=== PATIENT | female | born 1970 | race Hispanic/Latino ===

== ENCOUNTER 2021-08-22 07:50 | Observation (INO) | payer MEDICARE ==
--- NOTE | 2021-08-17 15:33 | Anesthesia Consultation ---
Anesthesia Consult and Med Hx Date of service: 08/22/21 - Airway Anesthetic Teeth Evaluation: Dentures ROM Head & Neck: Adequate (Has had cervical steroid injections) Mental/Hyoid Distance: Adequate Mallampati Class: Class III Intubation Access Assessment: Probably Good - Pre-Operative Health Status ASA Pre-Surgery Classification: ASA3 Proposed Anesthetic Plan: Spinal (GA if needed) - Pulmonary Hx Smoking: Yes (STOPPED X 4 WEEKS) COPD: Yes (INHALER PRN) Hx Sleep Apnea: No (NANCY PRE SCREEN HIGH RISK) - Cardiovascular System Hx Hypertension: Yes (X 5 YRS) - Central Nervous System Hx Back Pain: Yes (NECK AND BACK PAIN) Hx Psychiatric Problems: Yes (Fibromyalgia/Anxiety/Depression/Bipolar) - Gastrointestinal Hx Gastroesophageal Reflux Disease: No - Endocrine Hx Thyroid Disease: Yes Hx Hypothyroidism: Yes (S/P THYROIDECTOMY , DAILY MEDS) - Hematic Hx Anemia: Yes - Other Systems Hx Cancer: No
[~2021-08-22 07:50] MED LIST: ACETAMINOPHEN 500 MG TAB PO SCH; CELECOXIB 200 MG CAP PO NR; GABAPENTIN 300 MG CAP PO NR; LACTATED RINGERS 1,000 ML IV SCH; MAGNESIUM OXIDE 400 MG TAB PO SCH; MIDAZOLAM 2 MG/2 ML INJ IV NR; PREGABALIN 25 MG CAP PO SCH; fentaNYL 100 MCG/2 ML INJ IV SCH
[2021-08-22] MEDS ORDERED: ONDANSETRON 4 MG/2 ML INJ IV PRN ×2 (08:54→19:17)
[2021-08-22] MEDS ORDERED: oxyCODONE /ACETAMINOPHEN 5-325MG TAB PO PRN (08:54)
[2021-08-22] MEDS ORDERED: HYDROmorphone 1 MG/1 ML INJ IV PRN (08:54)
--- NOTE | 2021-08-22 08:56 | Anesthesia Day of Surgery ---
Anesthesia Day of Surgery - Day of Surgery Patient Examined: Yes Patient H&P Reviewed: Yes Patient is NPO: Yes Pulmonary Clearance: Yes
[2021-08-22] MEDS ORDERED: BUPIVACAINE/PF (0.25%) 2.5 MG/ML 30 ML VIAL INFILTRATI ONE (09:09)
[2021-08-22] MEDS ORDERED: dexAMETHasone 4 MG/ML VIAL ONE (09:09)
[2021-08-22] MEDS ORDERED: methOCARBAMOL 1,000 MG in SODIUM CHLORIDE 0.9% 250ML 250 ML IV SCH (09:30)
[2021-08-22] MEDS ORDERED: PREGABALIN 50 MG CAP PO SCH (10:00)
[2021-08-22] MEDS ORDERED: CELECOXIB 200 MG CAP PO SCH (10:00)
[2021-08-22] MEDS ORDERED: ceFAZolin/Water 2 GM/20 ML 2 GM/20 ML SYRINGE IV ONE (11:02)
[2021-08-22] MEDS ORDERED: LIDOCAINE MPF (2%) 20 MG/1 ML VIAL 5 ML ONE (11:30)
[2021-08-22] MEDS ORDERED: fentaNYL 100 MCG/2 ML INJ ONE (11:30)
[2021-08-22] MEDS ORDERED: propofoL 200 MG/20 ML VIAL IV ONE (11:30)
[2021-08-22] MEDS ORDERED: KETAMINE/STERILE WATER 50 MG/ML SYRINGE ONE (11:31)
[2021-08-22] MEDS ORDERED: ceFAZolin/STERILE WATER 2 GM/20 ML SYRINGE IV NR (12:00)
[2021-08-22] MEDS ORDERED: MORPHINE 10 MG/1 ML INJ ONE (12:06)
[2021-08-22] MEDS ORDERED: methylPREDNISolone ACETATE 40 MG/1 ML INJ ONE (12:06)
[2021-08-22] MEDS ORDERED: BUPIVACAINE/PF (0.5%) 5 MG/1 ML 30 ML VIAL INFILTRATI ONE ×2 (12:07→13:16)
[2021-08-22] MEDS ORDERED: SODIUM CHLORIDE P/F VIAL 10 ML 30 ML ONE (12:08)
[2021-08-22] MEDS ORDERED: SUCCINYLCHOLINE CHLORIDE 200 MG/10 ML INJ MDV ONE (12:19)
[2021-08-22] MEDS ORDERED: ALBUTEROL 8.5 GM MDI INHALATION IH ONE (12:19)
[2021-08-22] MEDS ORDERED: TRANEXAMIC ACID 1,000 MG/10 ML ONE (12:23)
[2021-08-22] MEDS ORDERED: MORPHINE 10 MG/1 ML INJ IM ONE (13:12)
[2021-08-22] MEDS ORDERED: methylPREDNISolone ACETATE 40 MG/1 ML INJ INTRA-ARTI ONE (13:14)
[2021-08-22] MEDS ORDERED: SODIUM CHLORIDE 0.9% 50 ML VIAL IRRIGATION ONE ×2 (13:15)
[2021-08-22] MEDS ORDERED: SODIUM CHLORIDE 0.9% IRRIG SOLN 2000 ML IR ONE (13:29)
[2021-08-22] MEDS ORDERED: TRANEXAMIC ACID 1,000 MG/10 ML IV ONE (14:18)
--- NOTE | 2021-08-22 16:02 | Post Operative Note ---
Pre-op diagnosis: right knee osteoarthritis Post-op diagnosis: same Findings: severe right knee osteoarthritis Procedure: right total knee replacement Anesthesia: GETA Surgeon: KATLIN KIMBLE Estimated blood loss: other (150cc) Specimen disposition: discarded Condition: stable Disposition: PACU
--- NOTE | 2021-08-22 16:04 | Discharge Summary ---
Short Stay Discharge Plan Activity: no restrictions, advance as tolerated, no driving until cleared by PCP Weight Bearing Status: Full Weight Bearing Diet: regular Wound: keep clean and dry, per your surgeon's advice Special Instructions: physical therapy Durable Medical Equipment Needed Upon Discharge: Walker-Rolling, Bedside Commode Follow up with: KATLIN KIMBLE DO [Staff Physician] - 10 Days FELIPA FERNANDO MD [Primary Care Provider] - 14 Days
--- NOTE | 2021-08-22 17:22 | Operative Report ---
Operative Report Operative Report: Patient Name: Yenifer Vang Date of : 1970 Date of Surgery: 08/22/21 Pre-Operative Diagnosis: Right knee Osteoarthritis Post-Operative Diagnosis: right knee osteoarthritis Procedure: Right total knee arthroplasty Surgeon: Dung Stone DO Assistants: None EBL: 150cc Complications: None Anesthesia: GETA, plus regional nerve block for post-operative pain control Implants: Medacta GMK Sphere size 3+ femur, size 3 tibia, 10mm CS polyethylene insert, size 2 patella Tourniquet Time: 60 minutes Indications: This is a 51-year-old female who presented with worsening right knee pain over the last 4 to 5 years. Pain is worse with weightbearing. Patient difficulty ambulating, going up and down the stairs because of the pain. Patient had tried nonoperative management including physical therapy, joint injections, anti-inflammatory medications, knee braces, activity modifications, ambulating with assistive devices. Despite all this patient continues to have severe pain in her right knee. Patient was up in the preoperative holding area the risk, benefits, alternatives to surgery were explained to the patient in detail. Risks include but not limited to infection, bleeding, neurovascular injury, infection, need for further surgery, fracture, dislocation, pain, stiffness, loss of limb, loss of life. Informed consent was obtained after all questions were thoroughly answered. Procedure: Patient was placed supine on the operating room table and all bony prominences were well-padded. The right lower extremities prepped and draped in the usual sterile fashion. A timeout was performed by all members of the operating room team. An Esmarch bandage was used to wrap the right lower extremity and the tourniquet was inflated to 250 mmHg. A midline incision was made over the right knee. Sharp dissection was used to go through the skin and the subcutaneous fat. Medial and lateral fasciocutaneous flaps were then elevated. Using electrocautery a medial parapatellar arthrotomy was then performed. Upon inspection of the knee joint there was severe osteoarthritis in the medial, lateral and patellofemoral compartments. The ACL and the PCL as well as the meniscal remnants were then removed. A custom cutting guide had been made for the patient preoperatively based on CT scans. It was then fixed to the distal femur using 3 pins. Using an oscillating saw the distal femoral resection was then performed. The custom cutting guide was then removed and a size 3+ 4-in-1 cutting block was then secured to the distal femur using 2 bone screws. Again using the oscillating saw the anterior and posterior distal femoral cuts were made along with the anterior and posterior chamfer cuts. Next our attention was then turned to the proximal tibia. The custom proximal tibial cutting jig was then secured to the proximal tibia using 3 pins. An oscillating saw was used to make our proximal tibial resection. Next using a laminar metal polisher the knee joint was opened up in 90 degrees of flexion. Using a 0.5 inch curved osteotome the posterior osteophytes were removed from both the posterior medial distal femur as well as posterior lateral distal femur. The meniscal remnants were then removed. Next the tibia was anteriorly subluxed and a size 3 tibial guide was then placed in the appropriate amount of rotation parallel to the rotational axis of the tibia of the council knee. Tibial guide was secured to the proximal tibia using 2 pins. The tibia was then drilled and punched in the proper rotation. Trial components were then placed on the tibia as well as the femur. The knee was taken through the full range of motion and found to be stable. The knee was able to be flexed to 135 degrees and extension to 0 degrees. There is no varus or valgus laxity with the knee in full extension. The knee was flexed to 90 degrees and again varus and valgus stress was applied. There was no gapping of the medial side with the knee 90 degrees of flexion, the lateral side had approximately 2 mm of gapping which was consistent with a kinematics of the council knee joint. The patella was also tracking well within the trochlear groove with no lateral tilt or subluxation. The patella was then everted and cut down to 14 mm using the patellar cutting guide. 3 holes were drilled into the patella and the trial button was placed. Again the knee was taken through the full range of motion with good patella tracking. At this point we were satisfied with the overall range of motion the stability of the patella tracking as well as the knee. All trials were then removed. The real components were opened. The knee was copiously irrigated with antibiotic saline and then dried. A local anesthetic cocktail was then injected into the posterior capsule as well as the surrounding deep tissues of the knee joint. 2 bags of cement were mixed. Once the cement was in a doughy state the real components were cemented into place starting with the tibia followed by the femur and then the patella. All excess cement was then removed using curettes from around the implants. Once the cement had completely hardened the knee was irrigated again with diluted Betadine mixed with normal saline. The knee was then copiously irrigated with normal saline using pulsatile lavage. The tourniquet was let down earlier at 60 minutes. Electrocautery was used throughout the case to maintain meticulous hemostasis. The arthrotomy was then closed in flexion in a watertight fashion using #1 Ethibond suture in an interrupted fashion. The deep fascial layer was closed with 0 Vicryl. The subcutaneous layers were closed with 2-0 Vicryl and the skin was closed with 3-0 Monocryl. The wound was then covered with an occlusive dressing. The right lower extremity was wrapped in an Jai wrap from the foot all the way up to the proximal thigh. The sponge and needle count were correct in the case. The patient was then awakened by the anesthesia team and taken to the recovery room in stable condition. The patient's right total knee arthroplasty was performed using the caliper k inematically aligned technique with patient specific custom cutting guides.
[2021-08-22] MEDS ORDERED: MORPHINE 4 MG/1 ML INJ IV PRN (19:17)
[2021-08-22] MEDS ORDERED: traMADol 50 MG TAB PO PRN (19:17)
[2021-08-22] MEDS ORDERED: oxyCODONE 5 MG TAB PO PRN (19:17)
[2021-08-22] MEDS ORDERED: SODIUM CHLORIDE 0.9% 1000 ML 1,000 ML IV SCH (19:17)
--- NOTE | 2021-08-22 20:12 | Post Anesthesia Evaluation ---
- Post Anesthesia Evaluation Patient Participated: Yes Airway Patent: Yes Stable Respiratory Function: Yes Nausea/Vomiting: No Temp > 96.8F: Yes Pain Manageable: Yes Adequeate Hydration: Yes Anesthesia Complications: No
[2021-08-22] MEDS: KETOROLAC 30 MG/1 ML INJ IV SCH (20:36)
[2021-08-22] MEDS: ASPIRIN 81 MG TAB CHEW PO SCH (23:33)
[2021-08-22] MEDS: DOCUSATE SODIUM 100 MG CAP PO SCH (23:34)
[2021-08-22] MEDS: ACETAMINOPHEN 325 MG TAB PO SCH (23:51)
[2021-08-23] MEDS: ceFAZolin/NS 1 GM/50 ML 1 GM/50 ML BAG IV SCH ×2 (00:12→06:27)
[2021-08-23] MEDS: ACETAMINOPHEN 325 MG TAB PO SCH ×3 (01:05→19:06)
[2021-08-23] MEDS: KETOROLAC 30 MG/1 ML INJ IV SCH (04:31)
[2021-08-23 05:14] LABS: Hematocrit 33.5 % (30.3-42.9); Hemoglobin 11.2 gm/dl (10.1-14.3)
[2021-08-23 05:35] LABS: BUN/Creatinine Ratio 11; Blood Urea Nitrogen 9 mg/dL (7-17); Calcium 7.8 mg/dL (8.4-10.2); Hemolysis Index 7
[2021-08-23] MEDS: oxyCODONE ER 10 MG TAB PO SCH ×2 (06:45→13:10)
[2021-08-23] MEDS: ASPIRIN 81 MG TAB CHEW PO SCH (09:02)
[2021-08-23] MEDS: DOCUSATE SODIUM 100 MG CAP PO SCH (09:03)
[2021-08-23] MEDS ORDERED: MULTIVITAMINS ,THERAPEUTIC TAB PO SCH (10:00)
--- NOTE | 2021-08-23 12:46 | Progress Note ---
Subjective Date of service: 08/23/21 Principal diagnosis: s/p right TKA Interval history: Orthopedic Surgery POD #1 s/p right TKA Patient seen and examined at bedside. Patient is doing well overall. She complains of pain in her right knee, controlled with medications. Patient was able to ambualte with physical therapy. Denies any fevers or chills. Tolerating oral diet. Denies any paresthesias in her RLE. No other complaints at this time. Patient is upset they lost her dentures. Vitals: AVSS All labs reviewed from this morning. Hemoglobin above 11 RLE: Dressings C/D/I. Ankle PF/DF/EHL motor intact. L4-S1 SILT. (+) DP Pulse A/p: 51F s/p Right TKA POD#1 - patient is doing well. She had to stay overnight due to history of COPD (former smoker) - need O2 in hospital, pain control (on chronic pain medications at home) -WBAT - PT/OT - pain control - regular diet - ASA 81mg PO BID for DVT ppx - Discharge instructions for post-op given to patient - Discharge home today Dung Stone, DO Orthopedic Surgery Objective Vital signs: Vital Signs - 12hr 08/23/21 08/23/21 08/23/21 01:05 02:05 04:31 Temperature Pulse Rate Respiratory 17 17 17 Rate Blood Pressure Blood Pressure [Right] O2 Sat by Pulse Oximetry 08/23/21 08/23/21 08/23/21 05:01 06:07 06:32 Temperature 98.2 F Pulse Rate 84 Respiratory 17 16 17 Rate Blood Pressure 87/44 Blood Pressure 94/56 [Right] O2 Sat by Pulse 94 Oximetry - Labs CBC & BMP: 08/23/21 04:57 08/23/21 04:57 Labs: Abnormal lab results 08/23/21 Range/Units 04:57 Glucose 179 H (65-100) mg/dL Calcium 7.8 L (8.4-10.2) mg/dL
--- NOTE | 2021-08-23 12:50 | Discharge Summary ---
Providers - Providers Date of Admission: 08/22/21 16:21 Date of discharge: 08/23/21 Attending physician: KATLIN KIMBLE DO 08/22/21 10:16 Physical Therapy Evaluation and Treat [CONS] Urgent Comment: patient will be in PACU Reason For Exam: s/p right total knee replacement Mode of Transport?: Walker Weight bearing status?: Full wt bearing Assistive devices?: Yes: will need a walker If so list: Walker 08/22/21 19:17 Consult to Case Management [CONS] Routine Services Needed at Discharge: Physical Therapy Notified:: CM Occupational Therapy Evaluate and Treat [CONS] Routine Comment: begin post op day 1 Reason For Exam: post-op Physical Therapy Evaluation and Treat [CONS] Routine Comment: avoid flexion, add, int rotation of operative hip Reason For Exam: post op therapy Primary care physician: FELIPA FERNANDO MD Hospitalization Reason for admission: acute care for post-op, pain control, history of COPD - required O2 Condition: Stable Procedures: right total knee replacement Hospital course: Patient was kept overnight s/p Right TKA. Pain controlled with oral and IV pain medications. ASA 81mg Po BID started for DVT ppx. Patient was able to ambulate with PT and be cleared for a safe discharge home. Tolerated oral diet. Patient was able to be weaned off of supplemental O2. Disposition: 01 HOME / SELF CARE / HOMELESS Final Discharge Diagnosis (Prints w/discharge instructions): Printed copy already given to patient. Follow the printed instructions given to you by surgeon. Time spent for discharge: 30 min - Discharge Diagnoses (1) Osteoarthritis of right knee Status: Chronic Qualifiers: Osteoarthritis type: primary Qualified Code(s): M17.11 - Unilateral primary osteoarthritis, right knee (2) COPD (chronic obstructive pulmonary disease) Status: Acute Qualifiers: COPD type: unspecified COPD Qualified Code(s): J44.9 - Chronic obstructive pulmonary disease, unspecified Core Measure Documentation - Palliative Care Palliative Care/ Comfort Measures: Not Applicable - Core Measures Any of the following diagnoses?: none - VTE Discharge Requirements Deep Vein Thrombosis/Pulmonary Embolism Present on Admission: No Has pt received <5 days of overlap therapy or INR<2.0: No Anticoagulant overlap therapy prescribed at discharge: No Contraindication No Overlap Therapy order at DC: Not Indicated - Acute [place] Discharge Requirements Aspirin at discharge: Yes - Heart Failure Discharge Requirements AROLDO/ARB for LVSD if EF <40%: Not Applicable - Stroke Discharge Requirements Statin for LDL = or >70 mg/dl on DC: Not Applicable Anticoag for atrial fib/atrial flutter: Not Applicable (Patient is on ASA) Antithrombotic for ischemic stroke: No Reason for no antithrombotic on DC: Not Indicated Exam - Constitutional Vitals: Temp Pulse Resp BP Pulse Ox 98.2 F 84 17 94/56 94 08/23/21 06:07 08/23/21 06:32 08/23/21 06:32 08/23/21 06:32 08/23/21 06:32 Plan Follow up with: KATLIN KIMBLE DO [Staff Physician] - 10 Days FELIPA FERNANDO MD [Primary Care Provider] - 14 Days
[2021-08-24 00:04] VITALS: BP 119/66
== END 2021-08-23 14:07 | disposition home or self-care (01) ==
LOC: OR 07:50 → EDSTATUS 08:00 → 3A 16:21
PROVIDERS: ADMIT Orthopaedic Surgery; ATTEND Orthopaedic Surgery
DX: M17.11 Unilateral primary osteoarthritis, right knee (principal); Z20.822 Contact with and (suspected) exposure to COVID-19; J44.9 Chronic obstructive pulmonary disease, unspecified; Z79.899 Other long term (current) drug therapy; Z98.890 Other specified postprocedural states
CPT/HCPCS: 27447; 36415; 64447; 80048; 85014; 85018; 88304; 88311; 96365; 96366; 96375; 96376; 97110; 97116; 97162; 97165; C1713; C1776; G0378; J0330; J0690; J0696; J1030; J1100; J1170; J1885; J2250; J2270; J2704; J2800; J3010; J3490; J7030; J7050; J7120; U0003; 64450